=== PATIENT | male | born 1965 | race Asian ===

== ENCOUNTER 2020-10-06 02:03 | Emergency (ER) | payer OTHER ==
[~2020-10-06] VITALS: Ht 177.8 cm; Wt 77.6 kg
[2020-10-06 02:38] LABS: PLATELET COUNT 130 K/uL (142-355)
[2020-10-06 03:37] VITALS: BP 110/71; TEMP 97.6
[2020-10-06] MEDS ORDERED: RISP0.5T2 PO (05:15)
[2020-10-06] MEDS ORDERED: PHENYTOIN EX100 MG PO (05:16)
[2020-10-06] MEDS ORDERED: LORA0.5T17 PO (05:17)
[2020-10-06] MEDS ORDERED: VIMPAT100 MG PO (05:18)
[2020-10-06] MEDS ORDERED: TOPAMAX200 MG PO (05:19)
[2020-10-06] MEDS ORDERED: RITONAVIR100 MG PO (05:20)
[2020-10-06] MEDS ORDERED: ROWEEPRA XR750 MG PO (05:22)
[2020-10-06] MEDS ORDERED: KETOCONAZOLE21 EX (05:23)
[2020-10-06] MEDS ORDERED: IPRATROPIUM BRO1 POW XX (05:25)
[2020-10-06] MEDS ORDERED: LIPITOR10 MG PO (05:26)
[2020-10-06] MEDS ORDERED: ATAZANAVIR SUL300 MG PO (05:26)
[2020-10-06] MEDS ORDERED: [UNRECOGNIZED DRUG - OTHER] PO (05:28)
[2020-10-06] MEDS ORDERED: ABACAVIR SULFAT1 TAB PO (05:31)
[2020-10-06] MEDS ORDERED: BOOST PO (05:32)
[2020-10-06] MEDS ORDERED: MEDROXYPROG150 MG/ML IM (05:36)
[2020-10-13] MEDS ORDERED: ESCI10TA PO (10:36)
[2020-10-13] MEDS ORDERED: RISP0.25 PO (10:38)
== END 2020-10-06 03:37 | disposition still patient (30) ==
LOC: ED 02:03
PROVIDERS: Hospitalist
DX: F03.91 Unspecified dementia, unspecified severity, with behavioral disturbance (principal); R45.850 Homicidal ideations; Z21 Asymptomatic human immunodeficiency virus [HIV] infection status; R56.9 Unspecified convulsions; Z11.59 Encounter for screening for other viral diseases; Z04.6 Encounter for general psychiatric examination, requested by authority
CPT/HCPCS: 36415; 80053; 80185; 81000; 85007; 85027; 87635; 99283; U0003